=== PATIENT | male | born 1985 | race African-American/Black ===

== ENCOUNTER 2023-08-16 04:05 | Emergency (ER) | payer OTHER ==
[~2023-08-16] VITALS: Ht 177.8 cm; Wt 122.7 kg
[2023-08-16] MEDS ORDERED: LIDOCAINE 5% TRANSDERMAL PATCH TD ONE (07:00)
[2023-08-16 07:01] LABS: BASOPHILS % (AUTO) 1.4 % (0.0-2.0); EOSINOPHILS % (AUTO) 4.1 % (1.0-6.0); HEMATOCRIT 39.7 % (41-53); HEMOGLOBIN 13.3 g/dL (13.5-17.5); LYMPHOCYTES # (AUTO) 1.9 K/uL (1.0-4.8); LYMPHOCYTES % (AUTO) 30.5 % (22.0-44.0); MEAN CORPUSCULAR HEMOGLOBIN 29.8 pg (26.0-34.0); MEAN CORPUSCULAR HGB CONC 33.6 G/dL (31.0-37.0); MEAN CORPUSCULAR VOLUME 89 fL (80-100); MONOCYTES # (AUTO) 0.7 K/uL (0.1-1.0); NEUTROPHILS # (AUTO) 3.2 K/uL (1.8-7.7); PLATELET COUNT (AUTO) 359 K/uL (150-450); RED BLOOD CELL COUNT(AUTO) 4.47 MIL/uL (4.50-5.90); WHITE BLOOD COUNT (AUTO) 6.1 K/uL (4.5-11.0)
[2023-08-16 07:17] LABS: ANION GAP 5 mmol/L (8-16); CALCIUM, TOTAL 8.6 mg/dL (8.8-10.5); CARBON DIOXIDE 30 mmol/L (22-29); CHLORIDE 105 mmol/L (98-107); CREATININE 1.11 mg/dL (0.60-1.30); GLOMERULAR FILTR. RATE CALC > 60 mL/min (>60); GLUCOSE,RANDOM 111 mg/dL (70-110); POTASSIUM 4.2 mmol/L (3.5-5.1); SODIUM SERUM 140 mmol/L (136-145); UREA NITROGEN, BLOOD 15 mg/dL (7-18)
[2023-08-16 07:19] LABS: LACTIC ACID 0.7 mmol/L (0.4-2.0); TROPONIN I-HIGH SENSITIVITY 11 ng/L (<76)
[2023-08-16 07:26] LABS: ALANINE AMINOTRANSFERASE 33 U/L (12-78); ALBUMIN 3.8 g/dL (3.4-5.0); ALKALINE PHOSPHATASE 71 U/L (46-116); ASPARTATE AMINOTRANSFERASE 19 U/L (15-37); BILIRUBIN,TOTAL 0.2 mg/dL (0.1-1.0); LIPASE 31 U/L (16-77); TOTAL PROTEIN, SERUM 8.1 g/dL (6.4-8.2)
[2023-08-16] MEDS ORDERED: HYDR-4723 PO (07:58)
[2023-08-16] MEDS ORDERED: IBUP-1554 PO (07:58)
[2023-08-16 08:11] VITALS: BP 130/75; PULSE 88; RESP 16; TEMP 98.7
== END 2023-08-16 08:13 | disposition home or self-care (01) ==
LOC: EMS 04:07
DX: S29.011A Strain of muscle and tendon of front wall of thorax, initial encounter (principal); R07.89 Other chest pain; X58.XXXA Exposure to other specified factors, initial encounter; Y93.89 Activity, other specified; Y92.89 Other specified places as the place of occurrence of the external cause; Y99.8 Other external cause status
CPT/HCPCS: 71101; 80053; 83605; 83690; 84484; 85025; 85379; 93005; 99285

== ENCOUNTER 2025-03-22 00:04 | Emergency (ER) | payer OTHER ==
[~2025-03-22] VITALS: Ht 177.8 cm; Wt 127.3 kg
[~2025-03-22 00:04] MED LIST: HYDR-4062 PO; IBUP-1554 PO
[2025-03-22 00:12] VITALS: TEMP 98
[2025-03-22 00:30] VITALS: BP 160/88; PULSE 77; RESP 17; O2SAT 98
[2025-03-22] MEDS: IBUPROFEN 600 MG TABLET PO ONE (01:06)
== END 2025-03-22 01:10 | disposition home or self-care (01) ==
LOC: EMS 00:12
DX: M72.2 Plantar fascial fibromatosis (principal); Z79.899 Other long term (current) drug therapy
CPT/HCPCS: 99282; Z7502; Z7610